=== PATIENT | female | born 1965 | race Caucasian/White ===

== ENCOUNTER 2023-12-28 10:03 | Outpatient (REF) | payer BC, SELFPAY ==
[2023-12-28 12:06] LABS: Anion Gap 13 (12-20); Blood Urea Nitrogen 15 mg/dL (9-16); Calcium 10.4 mg/dL (8.4-10.2); Carbon Dioxide 28 mmol/L (22-29); Chloride 104 mmol/L (96-108); Estimated Glomerular Filt Rate > 60; Glucose Random 67 mg/dL (60-115); Sodium 141 mmol/L (135-145)
[2023-12-28 12:16] LABS: TSH reflex Free T4 1.18 uIU/mL (0.32-4.0)
[2023-12-28 12:41] LABS: Folate 11.9 ng/mL (> or = 4.0); Vitamin B12 281 pg/mL (200-900)
== END 2023-12-28 10:04 | disposition home or self-care (01) ==
LOC: HO.LAB 10:03
PROVIDERS: PCP Family Medicine; Visit Provider Psychiatry & Neurology Neurology
DX: G31.84 Mild cognitive impairment of uncertain or unknown etiology (principal)
CPT/HCPCS: 36415; 80048; 82607; 82746; 84443